=== PATIENT | female | born 1995 | race Caucasian/White ===

== ENCOUNTER 2021-09-16 22:20 | Outpatient (CLI) | payer BC | END 2021-09-16 23:56 | disposition home or self-care (01) | LOC: GENOP 22:20 | DX: O99.891 Other specified diseases and conditions complicating pregnancy (principal); R03.0 Elevated blood-pressure reading, without diagnosis of hypertension; M79.89 Other specified soft tissue disorders; Z88.5 Allergy status to narcotic agent; Z3A.30 30 weeks gestation of pregnancy | CPT/HCPCS: 81001; G0463 ==

== ENCOUNTER 2021-12-05 19:05 | Emergency (ER) | payer BC ==
[2021-12-05 19:35] LABS: RED BLOOD COUNT 4.53 M/UL (4.00-5.10)
[2021-12-05 19:52] LABS: BUN/CREATININE RATIO 22 (0-10)
== END 2021-12-06 00:39 | disposition home or self-care (01) ==
LOC: ER1 19:05
PROVIDERS: Family Medicine
DX: R10.31 Right lower quadrant pain (principal); R10.813 Right lower quadrant abdominal tenderness; Z90.49 Acquired absence of other specified parts of digestive tract; Z88.5 Allergy status to narcotic agent
CPT/HCPCS: 80053; 81001; 83690; 84703; 85025; 99284; Q9967